=== PATIENT | male | born 1985 | race Caucasian/White ===

== ENCOUNTER 2017-06-20 18:29 | Emergency (ER) | payer OTHER ==
[~2017-06-20] VITALS: Ht 172.7 cm; Wt 90.9 kg
[~2017-06-20 18:29] MED LIST: NOCURR
[2017-06-20] MEDS ORDERED: DiphenhydrAMINE HCL 50 MG/ML VIAL IVP ONE (18:45)
[2017-06-20] MEDS ORDERED: TraMADol HCL 50 MG TABLET PO ONE (18:45)
[2017-06-20] MEDS ORDERED: CefTRIAXone 1 GM/DEXTROSE 50 ML IV ONE (18:45)
[2017-06-20] MEDS ORDERED: IBUPROFEN 600 MG TABLET PO ONE (21:30)
[2017-06-20 22:01] VITALS: BP 136/88
== END 2017-06-20 22:04 | disposition home or self-care (01) ==
LOC: EMS 18:31
DX: M72.2 Plantar fascial fibromatosis (principal)
CPT/HCPCS: 99282; 99283

== ENCOUNTER 2020-09-06 19:41 | Emergency (ER) | payer OTHER ==
[~2020-09-06] VITALS: Ht 170.2 cm; Wt 97.7 kg
[2020-09-06] MEDS ORDERED: HYDROCODONE/ACETAMINOPHEN 5-325 MG TABLET PO ONE (21:00)
[2020-09-06 21:29] VITALS: BP 168/90
== END 2020-09-06 21:39 | disposition home or self-care (01) ==
LOC: EMS 19:41
DX: M75.31 Calcific tendinitis of right shoulder (principal); I10 Essential (primary) hypertension

== ENCOUNTER 2021-11-05 19:53 | Emergency (ER) | payer OTHER ==
[~2021-11-05] VITALS: Ht 172.7 cm; Wt 91.4 kg
[2021-11-05 21:22] VITALS: BP 155/92
[2021-11-05] MEDS ORDERED: IBUP-2070 PO (23:28)
[2021-11-05] MEDS ORDERED: IBUPROFEN 600 MG TABLET PO ONE (23:30)
== END 2021-11-05 23:54 | disposition home or self-care (01) ==
LOC: EMS 22:33
DX: S80.01XA Contusion of right knee, initial encounter (principal); W01.198A Fall on same level from slipping, tripping and stumbling with subsequent striking against other object, initial encounter; Y93.89 Activity, other specified; Y92.89 Other specified places as the place of occurrence of the external cause; Y99.8 Other external cause status
CPT/HCPCS: 29530; 99283